=== PATIENT | male | born 1955 | race Caucasian/White ===

== ENCOUNTER 2018-05-16 05:58 | Day surgery (SDC) | payer OTHER ==
[2018-05-16] MEDS ORDERED: ROBINUL IV ONE (05:59)
[2018-05-16] MEDS ORDERED: DIPRIVAN 200 MG/20 ML IV ONE (05:59)
[2018-05-16] MEDS ORDERED: Lactated Ringers 1,000 ML IV SCH (06:30)
[2018-05-16] MEDS ORDERED: Lactated Ringers 1,000 ML IV ONE (08:28)
[2018-05-16 09:19] VITALS: BP 136/77; PULSE 66; O2SAT 100
--- NOTE | 2018-05-16 11:20 | OP ---
SURGERY DATE/TIME: 05/16/2018 0827 PREOPERATIVE DIAGNOSIS: Screening exam, surveillance history of colon polyps. POSTOPERATIVE DIAGNOSIS: Small polyp in the ascending colon and sigmoid diverticulosis. PROCEDURE: Colonoscopy with biopsy. SURGEON: Dr. Claudio. ANESTHESIA: MAC. Medications given by anesthesia department. HISTORY: The patient is a 63 year-old white male patient with known history of colon polyps. He presents now for screening surveillance examination. He was reappraised of the risks of the procedure including the risk of perforation, phlebitis, untoward reaction to medication, bleeding and missed lesions. The patient verbalized his understanding and desired to have the procedure performed. DESCRIPTION OF PROCEDURE: The patient was given the medications by the anesthesia department. He had continuous pulse oximetry, ECG monitoring, intermittent blood pressure monitoring and tidal CO2 monitoring during the examination. He was placed in the left lateral decubitus position. A digital rectal examination was performed and revealed normal anal sphincter tone, no masses and normal prostate. The flexible Olympus pediatric colonoscope was used to intubate the rectum. A view of the colon was developed sequentially to the cecum. There a small polyp was detected and measuring approximately 0.4 cm in size and diameter and sessile, this was biopsied using cold biopsy technique destroying the lesion and sent to pathology for evaluation for adenomatous change. Upon insertion and withdrawal, including a retroflex view in the rectum, otherwise was noted to be sigmoid diverticulosis, mild to moderate in nature. The scope was removed from the patient who tolerated the procedure well and was sent back to OP recovery in good condition. The prep was noted to be fair to good.
== END 2018-05-16 09:34 | disposition home or self-care (01) ==
LOC: SDC 05:58
PROVIDERS: ATTEND Family Medicine
DX: K63.5 Polyp of colon (principal); Z12.11 Encounter for screening for malignant neoplasm of colon; Z86.010 Personal history of colon polyps; K57.30 Diverticulosis of large intestine without perforation or abscess without bleeding
CPT/HCPCS: 88305; 94250; J2704

== ENCOUNTER 2021-02-20 16:15 | Emergency (ER) | payer OTHER ==
[2021-02-20 16:29] VITALS: O2SAT 98
--- NOTE | 2021-02-20 16:38 | ERPHSYRPT ---
- History of Present Illness Time Seen by Provider: 02/20/21 16:38 Patient Subjective Stated Complaint: Pt states "I am having a heart cath next and I had blood work yesterday and Dr. Lucas's nurse called and said my potassium was elevated and to get to the emergency room of my choice. My potassium was 5.7" Triage Nursing Assessment: Pt presented alert and oriented X 3, skin pwd. Pt a ble to speak in clear full sentences. Pt in no apparent respiratory distress. Physician History: This is a 65-year-old white male who presents with asymptomatic abnormal pot assium of 5.7. 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 The patient has no symptoms whatsoever. The patient's lab was drawn 2 days ago at a different facility. Patient is to undergo cardiac catheterization next week. Timing/Duration: today Modifying Factors: Improves With: nothing Associated Symptoms: denies symptoms Allergies/Adverse Reactions: No Known Drug Allergies Allergy (Verified 05/16/18 06:22) Home Medications: Latanoprost [Xalatan] 2.5 ml OP HS 03/07/13 [History] Omeprazole 20 MG [Prilosec 20 mg] 1 tab PO DAILY PRN 03/07/13 [History] Atorvastatin Calcium 20 mg PO DAILY 05/11/18 [History] Multivitamin W-Minerals/Lutein [Centrum Silver Tablet] 1 each PO DAILY 05/11/18 [History] Aspirin [Aspirin EC] 81 mg PO DAILY 02/20/21 [History] Hx Tetanus, Diphtheria Vaccination/Date Given: No Hx Influenza Vaccination/Date Given: Yes (fall 2011) Hx Pneumococcal Vaccination/Date Given: No Immunizations Up to Date: Yes Travel Risk - International Travel Have you traveled outside of the country in past 3 weeks: No - Coronavirus Screening Are you exhibiting any of the following symptoms?: No Close contact with a COVID-19 positive Pt in past 14-21 Days: No - Vaccine Status Have you recieved a Covid-19 vaccination: Yes Line Operator: [employer] - Vaccination Dates Date of 2cond Vaccination (if applicable): 10/2020 - Review of Systems Constitutional: No Symptoms Eyes: No Symptoms Ears, Nose, & Throat: No Symptoms Respiratory: No Symptoms Cardiac: No Symptoms Abdominal/Gastrointestinal: No Symptoms Genitourinary Symptoms: No Symptoms Musculoskeletal: No Symptoms Skin: No Symptoms Neurological: No Symptoms Psychological: No Symptoms Endocrine: No Symptoms Hematologic/Lymphatic: No Symptoms Immunological/Allergic: No Symptoms All Other Systems: Reviewed and Negative - Past Medical History Pertinent Past Medical History: Yes Neurological History: No Pertinent History ENT History: Glaucoma Cardiac History: High Cholesterol Respiratory History: Sleep Apnea Endocrine Medical History: No Pertinent History Musculoskeletal History: No Pertinent History GI Medical History: GERD History: No Pertinent History Psycho-Social History: No Pertinent History Male Reproductive Disorders: No Pertinent History Other Medical History: Former smoker. Sleep apnea with CPAP - Past Surgical History Past Surgical History: Yes Neuro Surgical History: No Pertinent History Cardiac: No Pertinent History Respiratory: No Pertinent History Gastrointestinal: Hernia Repair Genitourinary: No Pertinent History Musculoskeletal: No Pertinent History Male Surgical History: No Pertinent History Other Surgical History: right third finger cystectomy - Social History Smoking Status: Former smoker Exposure to second hand smoke: No Drug Use: none Patient Lives Alone: No - Nursing Vital Signs Nursing Vital Signs: Initial Vital Signs Temperature 97.5 F 02/20/21 16:22 Pulse Rate 84 02/20/21 16:22 Respiratory Rate 20 02/20/21 16:22 Blood Pressure 161/92 02/20/21 16:22 O2 Sat by Pulse Oximetry 98 02/20/21 16:22 Pain Scale Pain Intensity 0 - Physical Exam General Appearance: no apparent distress, alert Eye Exam: PERRL/EOMI, eyes nml inspection Ears, Nose, Throat Exam: normal ENT inspection, moist mucous membranes Neck Exam: normal inspection, non-tender, supple, full range of motion Respiratory Exam: normal breath sounds, lungs clear, airway intact, No chest tenderness, No respiratory distress Cardiovascular Exam: regular rate/rhythm, normal heart sounds, normal peripheral pulses Gastrointestinal/Abdomen Exam: soft, normal bowel sounds, No tenderness Rectal Exam: not done Back Exam: normal inspection, normal range of motion, No CVA tenderness, No vertebral tenderness Extremity Exam: normal inspection, normal range of motion, pelvis stable Neurologic Exam: alert, oriented x 3, cooperative, 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, normal mood/affect, nml cerebellar function, nml station & gait, sensation nml Skin Exam: normal color, warm, dry Lymphatic Exam: No adenopathy SpO2 Interpretation: normal SpO2: 98 O2 Delivery: Room Air - Course Nursing assessment & vital signs reviewed: Yes Ordered Tests: Active Orders 24 hr Category Date Time Status BMP Stat Lab 02/20/21 16:55 Completed Lab/Rad Data: Laboratory Result Diagrams 02/20/21 16:55 Laboratory Results 02/20/21 Range/Units 16:55 Sodium 141 (137-145) mmol/L Potassium 4.1 (3.5-5.1) mmol/L Chloride 106 (98-107) mmol/L Carbon Dioxide 25 (22-30) mmol/L Anion Gap 14.4 (5-15) MEQ/L BUN 12 (9-20) mg/dL Creatinine 0.98 (0.66-1.25) mg/dL Estimated GFR > 60.0 ML/MIN Glucose 126 H (74-106) mg/dL Calcium 9.6 (8.4-10.2) mg/dL - Progress Progress: unchanged Counseled pt/family regarding: lab results, diagnosis, need for follow-up, rad results - Departure Departure Disposition: Home Clinical Impression: Encounter for medical screening examination Condition: Stable Critical Care Time: No Referrals: BUD GREEN MD [Primary Care Provider] - Additional Instructions: Drink plenty of fluids. Take your medication as prescribed. Follow-up with your balloon seller at your scheduled appointment time.
[2021-02-20 17:15] LABS: ANION GAP 14.4 MEQ/L (5-15); BLOOD UREA NITROGEN 12 mg/dL (9-20); CHLORIDE 106 mmol/L (98-107); Calcium 9.6 mg/dL (8.4-10.2); Carbon Dioxide 25 mmol/L (22-30); Creatinine 1 0.98 mg/dL (0.66-1.25); EST GLOMERULAR FILTRATION RATE > 60.0 ML/MIN; Glucose 126 mg/dL (74-106); Potassium 4.1 mmol/L (3.5-5.1); SODIUM 141 mmol/L (137-145)
[2021-02-20 17:25] VITALS: BP 138/82; PULSE 76
== END 2021-02-20 17:57 | disposition home or self-care (01) ==
LOC: ED 16:15
DX: Z13.89 Encounter for screening for other disorder (principal); Z79.899 Other long term (current) drug therapy; E78.00 Pure hypercholesterolemia, unspecified; G47.30 Sleep apnea, unspecified
CPT/HCPCS: 36415; 80048; 99283